=== PATIENT | female | born 1980 | race African-American/Black ===

== ENCOUNTER 2021-09-26 13:48 | Outpatient (CLI) | payer OTHER ==
[2021-09-26 20:10] LABS: ALBUMIN 4.2 g/dL (3.2-5.5); ALBUMIN/GLOBULIN RATIO 1.5 (1.0-2.2); ALKALINE PHOSPHATASE 59 IU/L (42-121); ALT ALANINE AMINOTRANSFERASE 27 IU/L (10-60); AST ASPARTATE AMINOTRANSFERASE 27 IU/L (10-42); BILIRUBIN,TOTAL 0.7 mg/dL (0.2-1.0); BUN - BLOOD UREA NITROGEN 11 mg/dL (6-20); CALCIUM 9.4 mg/dL (8.5-10.3); CARBON DIOXIDE - CO2 30 mmol/L (21-32); CHLORIDE 102 mmol/L (101-111); CHOL/HDL RATIO 3.5 (<4.4); CHOLESTEROL 170 mg/dL; CREATININE 0.9 mg/dL (0.4-1.0); GFR - MDRD 69 (>89); GLUCOSE 92 mg/dL (70-100); HDL CHOLESTEROL 48 mg/dL; LDL CHOLESTEROL,CALCULATED 101 mg/dL; LDL/HDL RATIO 2.1 (<4.4); POTASSIUM 4.6 mmol/L (3.5-5.0); SODIUM 138 mmol/L (135-145); TRIGLYCERIDES 105 mg/dL; URIC ACID 6.9 mg/dL (2.6-7.2); VLDL CHOLESTEROL 21 mg/dL
[2021-09-26 20:21] LABS: THYROID STIMULATING HORMONE 1.48 uIU/mL (0.34-5.60)
[2021-09-28 06:09] LABS: HCV AB <0.1 s/co ratio (0.0-0.9)
[2021-09-29 18:08] LABS: FREE TESTOSTERONE(DIRECT) 11.2 pg/mL (0.0-4.2)
== END 2021-09-26 13:49 | disposition home or self-care (01) ==
LOC: LAB.S 13:48
PROVIDERS: ATTEND Nurse Practitioner Family
DX: M10.9 Gout, unspecified (principal); Z11.59 Encounter for screening for other viral diseases; Z13.1 Encounter for screening for diabetes mellitus; Z13.220 Encounter for screening for lipoid disorders; N62 Hypertrophy of breast
CPT/HCPCS: 36415; 80053; 80061; 83721; 84402; 84403; 84443; 84550; 86803

== ENCOUNTER 2022-08-09 14:18 | Outpatient (CLI) | payer MEDICAID, OTHER ==
--- NOTE | 2022-08-09 14:59 | XRAY Report ---
PROCEDURE: Chest 2 View X-Ray INDICATIONS: CHEST PAIN/AXILLARY LYMPHADENOPATHY TECHNIQUE: 2 views of the chest were acquired. COMPARISON: None. FINDINGS: Surgical changes and devices: None. Lungs and pleura: No pleural effusions or pneumothorax. Lungs are clear. Mediastinum: Mediastinal contours appear normal. Heart size is normal. Bones and chest wall: No suspicious bony lesions. Overlying soft tissues appear unremarkable. IMPRESSION: No acute cardiopulmonary process. Reviewed by: Edison Dickey MD on 08/09/2022 2:58 PM PDT Approved by: Edison Dickey MD on 08/09/2022 2:58 PM PDT Station ID: [id number]
== END 2022-08-09 23:59 | disposition home or self-care (01) ==
LOC: EDSEX → DI.S 14:18
PROVIDERS: ATTEND Physician Assistant
DX: R07.89 Other chest pain (principal); R59.0 Localized enlarged lymph nodes

== ENCOUNTER 2022-09-11 12:45 | Outpatient (CLI) | payer MEDICAID ==
--- NOTE | 2022-09-11 20:00 | CT Report ---
PROCEDURE: CHEST WO INDICATIONS: AXILLARY LYMPHADENOPATHY, CHEST PAIN TECHNIQUE: Noncontrast 1mm axial images were acquired from the pulmonary apices to the posterior costophrenic an gles. Axial 5 mm soft tissue kernel reconstructions were performed as well as 8 mm axial MIP and cor onal and sagittal 5 mm reformations. For radiation dose reduction, the following was used: automate d exposure control, adjustment of mA and/or kV according to patient size. COMPARISON: CXR 08/09/2022. FINDINGS: Image quality: Excellent. Lungs and pleura: No consolidation. No pleural effusions. No pneumothorax. No suspicious pulmonary n odules which require follow up. Airways are clear. Mediastinum: Heart size is normal. No pericardial effusions. No mediastinal adenopathy by size criter ia. No large vessel abnormality. Chest wall and lower neck: Thyroid is unremarkable. No axillary or supraclavicular adenopathy by size . Small intramuscular cyst at the left pectoralis major. Bones: No aggressive osseous abnormality. Upper Abdomen: Unremarkable. IMPRESSION: No mass or significant pulmonary nodules. No enlarged lymph nodes seen. Small left pectoralis intramuscular lipoma. Reviewed by: Toro Calloway MD on 09/11/2022 7:58 PM PDT Approved by: Toro Calloway MD on 09/11/2022 7:58 PM PDT Station ID: [id number]
--- NOTE | 2022-09-23 09:03 | Ultrasound Report ---
ULTRASOUND OF LEFT AXILLA: 09/11/2022 CLINICAL: Palpable left axilla lump. No prior exams were available for comparison. Color flow ultrasound of the left axilla was performed. Christiansen scale images of the real-time examinat ion were reviewed. There is a benign oval shaped axillary node with a fatty hilum in the axilla that correlates with cli nical concern. This measures 1.5 x 1.7 x 0.8cm. IMPRESSION: BENIGN There is no sonographic evidence of malignancy. Normal size and morphology lymph node corresponds to area of clinical concern. Clinical followup is recommended. If there are new/worsening symptoms, rec ommend reimaging. This exam was interpreted at Station ID: [id number]. Electronically Signed By: Omer Purcell M.D. lc/:09/23/2022 08:52:25 Ultrasound BI-RADS: 2 Benign BI-RADS CATEGORY: (2) - 2 Unspecified - other recall n/a LATERALITY: (B)
== END 2022-09-11 12:46 | disposition home or self-care (01) ==
LOC: DI 12:45
PROVIDERS: ATTEND Physician Assistant
DX: R59.0 Localized enlarged lymph nodes (principal); R07.89 Other chest pain; Z87.891 Personal history of nicotine dependence; D17.9 Benign lipomatous neoplasm, unspecified

== ENCOUNTER 2023-08-29 15:14 | Outpatient (CLI) | payer MEDICAID ==
--- NOTE | 2023-08-29 15:58 | Sleep Patient Instructions ---
Sleep Center Visit Summary - Patient Visit Information Reason for Visit: Initial consult for evaluation of sleep disordered breathing and other sleep issues. - Patient Instructions Instructions Attached: Sleep Study Home Monitor, Sleep Study Additional Instructions: You will be completing a sleep study, either an in-lab polysomnography (PSG) or home sleep study (HST). You will follow-up in the sleep care office after the sleep study is completed to hear the results and talk about therapy, if needed. You will be called by our office staff to schedule this appointment, but you may contact us with any questions. - Clinic Information Contact: [facility] [address] [place] [id number] [email or web address] T: [phone]
--- NOTE | 2023-08-29 16:07 | SLEEP CARE CONSULTATION ---
Information from patient questionnaire entered by Trever Fields. I have reviewed and concur with the information entered by Trever Fields. This document represents the service I personally performed and the decisions made by me, Roxy Albarran ARNP. History of Present Illness Service Date and Time: 08/29/2023 1514 Reason for Visit: New patient Accompanied by: Spouse Chief Complaint: reports: Insomnia, Excessive daytime sleepiness, Fatigue, Frequent awakenings at night Date of Onset: 35YRS Usual bedtime: [id number] Time it takes to fall asleep: RIGHT AWAY -A COUPLE HRS Snores at night: Yes Observed to quit breathing while asleep: No Sleeps alone due to snoring: No Number of times waking at night: 0-4 TIMES Reasons for waking at night: reports: Pain, Other (UNKNWON). denies: Choking, Gasping for air Toss, Turn, or Twitch while sleeping: Yes Recalls having dreams: Yes Usually gets out of bed at: [id number] Feels refreshed in the morning: No Morning headache: No Sleepy or fatigued during the day: Yes Ever fallen asleep while driving: Yes Takes day naps: Yes Dreams during day naps: Yes Prior sleep studies: No Additional HPI information: I had the pleasure of seeing TYREE THOMAS today regarding the possibility of him having a sleep disorder. His current complaints are excessvie daytime sleepiness, fatigue, frequent night awakenings, insomnia, sleep walking and eating. He says he has bouts of sleepwalking and eating. He will wake up with food in his mouth. His has been encouraging him to have this checked out. He will get to a point that he is so tired that he will fall asleep during activities and his has seen him fall asleep when eating on occasion. He got a referral here after he hurt his ankle after sleep walking, stepping on a child's toy and waking up with bruises on face and swollen ankle. He goes to bed around midnight to 1 AM. 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 When he lays down to sleep, he either falls asleep quickly. There are times though when it takes a couple of hours to get to sleep. His mind will be racing with thoughts and worries. This has happened since he was a child. He gets up between 9 am-12 pm. He says he does not normally feel rested after sleeping. His says he snores sometimes, especially if on his back. He says he used to get night terrors but has not had one for about 1-1/5 years since his twins were born. He says sometimes he has "uncontrolled sleepiness" that he has had since he was a child. He just has to lay down because his legs start buckling. He says he will either be able to fall asleep or he will just lay in bed until the wave passes. He says it can be related to stress. He has told his co-workers to get him to sit down if they find him looking unfocused with his legs wobbly. 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 Patient is and lives in [place]. Have you smoked in the past 12 months: No Cigarettes per day (20/pack): 20 Years of smokin Quit date: 2021 Smoking Pack Years: 25.0 Alcohol use: Yes Alcohol amount and frequency: 3 GLASSES MOST NIGHTS Caffeine use: Yes Caffeine amount and frequency: 3 SHOTS 2-4 DAYS A WEEK Family History Family history of sleep disordered breathing: Yes Family Hx Sleep Apnea: Father: Snoring, Sleep apnea - Treated, Sleep apnea - Untreated, Sibling: Snoring, Sleep apnea - Treated, Sleep apnea - Untreated Allergies and Home Medications Known drug allergies: No Drug allergies reviewed: Yes Home medication list reviewed: Yes (no daily medications or supplements) Review of Systems Weight gain over past 5 years: 45 Weight loss over past 5 years: 15 Cardiovascular: reports: high blood pressure, leg or foot swelling Gastrointestinal: reports: heartburn, diarrhea, abdominal pain Neurological: reports: head trauma (few in past) Psychiatric: reports: claustrophobia Ear/Nose/Throat: reports: other (JAW BROKEN I N 3 PLACES). denies: tonsillectomy, wisdom teeth removed Endocrine: reports: unexplained weakness Musculoskeletal: reports: joint pain, back pain, joint swelling, muscle pain or cramping Immunologic: reports: sneezing Physical Exam Vital signs obtained and entered by: TREVER Morton MA Blood Pressure: 170/101 (LEFT ARM; very anxious about appt) Cuff size: long Heart Rate: 89 O2 Saturation: 100 Height: 5 ft 10 in Weight: 231 lb 12.8 oz Body Mass Index: 33.3 BMI Classification: Obese Neck circumference: 17 Nostrils: patent to airflow Mouth and throat: narrow oropharynx Soft palate: long Hard palate: normal Uvula: normal Uvula visualization: 25% Mallampati Class III Tongue: enlarged in size with teeth mc on lateral edges Tonsils: small Neck: normal w/o lymphadenopathy or thyromegaly Heart: regular rate and rhythm Lungs: clear bilaterally Impression and Plan 1. Suspected Obstructive Sleep Apnea-Hypopnea Syndrome, as suggested by a history of irregular snoring, frequent awakening during the night, unrefreshed sleep, cognitive impairment, and excessive daytime sleepiness. Narrow oropharynx and obesity are common predisposing factors for obstructive sleep apnea-hypopnea syndrome. I recommend proceeding to polysomnography to confirm the diagnosis and to assess severity. If the patient has significant sleep disordered breathing, a manual CPAP titration study will also be performed to find the optimal treatment pressure. I informed the patient of what the sleep studies involve and after some discussion, obtained agreement to proceed. The pathophysiology of obstructive sleep apnea-hypopnea syndrome was discussed with the patient and health risks of cardiovascular and cerebrovascular disease if not treated. Risks of drowsy driving discussed in detail and patient advised to avoid long distance driving and to green chain puller at the first sign of drowsiness. Patient agreed to plan. * Schedule polysomnography * Avoid long distance driving or driving when feeling sleepy. * Avoid alcohol, sedative and muscle relaxant around bedtime. * Attempt to lose weight. * Review instructions provided by trained office staff on how to prepare for the sleep study. * Return for follow-up after sleep study completed. Counseling Topics: Weight loss health impact Visit Type: In Office Time Spent with Patient (minutes): 32 Provider Statement: I spent 100% of the Face to Face Visit with the patient with greater than 50% spent counseling the patient and coordination of care.
[2023-08-29 16:14] VITALS: BP 170/101; O2SAT 100
== END 2023-08-29 15:15 | disposition home or self-care (01) ==
LOC: SC 15:14
PROVIDERS: ATTEND Nurse Practitioner Family
DX: G47.10 Hypersomnia, unspecified (principal); G47.00 Insomnia, unspecified; R53.83 Other fatigue; F51.3 Sleepwalking [somnambulism]; R06.83 Snoring; G47.8 Other sleep disorders; R41.89 Other symptoms and signs involving cognitive functions and awareness; E66.9 Obesity, unspecified; Z68.33 Body mass index [BMI] 33.0-33.9, adult; Z87.891 Personal history of nicotine dependence
CPT/HCPCS: 99203; 99212

== ENCOUNTER 2023-10-24 20:45 | Outpatient (CLI) | payer MEDICAID | END 2023-10-24 20:46 | disposition home or self-care (01) | LOC: SC 20:45 | PROVIDERS: ATTEND Nurse Practitioner Family | DX: G47.33 Obstructive sleep apnea (adult) (pediatric) (principal); E66.9 Obesity, unspecified; Z68.33 Body mass index [BMI] 33.0-33.9, adult | CPT/HCPCS: 95810 ==

== ENCOUNTER 2023-12-09 13:14 | Outpatient (CLI) | payer MEDICAID ==
--- NOTE | 2023-12-09 14:18 | Sleep Patient Instructions ---
Sleep Center Visit Summary - Patient Visit Information Reason for Visit: Sleep study follow-up - Patient Instructions Instructions Attached: CPAP Additional Instructions: You are being started on CPAP therapy with pressure setting at 4-15 cmH2O. You will need to call the sleep care office to set up your follow up once you have your CPAP machine to check compliance and response to therapy at that time. You may call the office with any concerns about pressure feeling too low or too much for adjustment, if needed. You should contact DME supplier for any questions or concerns about mask or equipment. Please call office to schedule a follow up appointment in the sleep care office one month after obtaining new device. - Clinic Information Contact: [facility] [address] [place] [address] [email or web address] T: [phone]
--- NOTE | 2023-12-09 14:20 | SLEEP CARE CONSULTATION ---
Information from patient questionnaire entered by Tino Rodriguez. I have reviewed and concur with the information entered by Tino Rodriguez. This document represents the service I personally performed and the decisions made by , Roxy Albarran ARNP. History of Present Illness Service Date and Time: 12/09/2023 1314 Accompanied by: Spouse (and kids) Initial [place] Sleepiness Scale score: 13 (08/29/23) Current [place] Sleepiness Scale score: 21 (12/09/23) Additional HPI information: TYREE THOMAS returns for follow up and results of the recently performed polysomnography. The sleep study done on 10/13/23 showed mild obstructive sleep apnea with an average AHI of 12.8 and trae oxygen saturation of 65%. I explained the pathophysiology behind obstructive sleep apnea. We then spent quite a bit of time discussing different treatment options. For mild obstructive sleep apnea, surgery and oral appliance are alternatives to nasal CPAP therapy but in moderate or severe cases, nasal CPAP is the most effective and reliable treatment. Because apnea is primarily in supine position, then positional management therapy could be effective. Methods discussed such as positioning with pillows, using a T-shirt with tennis balls in the back or commercial products that have a pillow format on back to prevent supine sleep. I reviewed the impact of weight changes on sleep apnea and strongly recommended losing weight. After some discussion, the patient opted to go with the nasal CPAP therapy. Nasal autoCPAP set at 4-15 cmH20 will be ordered with rationale explained. A manual titration study will be ordered if unable to find optimal pressure with office adjustments. I explained how CPAP machine works and what to expect when using the machine. Using CPAP every night in order to get used to it was emp hasized. Patient advised to put CPAP mask on before getting into bed so as not to fall asleep without CPAP. To assist acclimation to CPAP use, it could also be used for a short time during day while reading or watching TV. The patient was instructed to call the CPAP supplier to discuss any mechanical problem that may occur. If the mask given is uncomfortable or is difficult to keep on through the night even with adjustment, contact the CPAP supplier as many will replace with another mask style if notified before 30 days. If snoring or perceives is not getting enough air or too much air from the machine, notify this office. Patient counseled not drink alcohol less than 4 hours before bedtime as it can increase snoring and apnea. Patient was cautioned about risks of drowsy driving until sleepiness symptoms resolve. Sleep Study - Results Type of Sleep Study: Polysomnography Prior sleep studies: No Year and Where: 2023 [facility] Polysomnography/Home Sleep Study results: IMPRESSION: The quality of the study is good. The patient had slightly reduced sleep efficiency due to sleep onset insomnia. The sleep architecture was normal. Respiratory monitoring showed mild obstructive sleep apneahypopnea (AHI = 12.8) associated with oxyhemoglobin desaturation and moderate hypoxia (trae oxygen saturation of 65%) but not sleep fragmentation. The respiratory events occurred almost exclusively during supine sleep (supine AHI = 22.1; non-supine = 4.92). Snore was light to loud in intensity. There was no significant periodic leg movement of sleep. Cardiac rhythm was normal sinus rhythm without significant arrhythmia. No abnormal behavior (parasomnia) observed during the night. Allergies and Home Medications Known drug allergies: No Drug allergies reviewed: Yes Home medication list reviewed: Yes (no changes) Allergy and home medication list: Allergies No Known Drug Allergies Allergy Review of Systems Review of systems same as previous: Yes (no changes) Physical Exam Vital signs obtained and entered by: Roxy Diaz NP Blood Pressure: 143/89 Cuff size: long (left arm) Heart Rate: 82 O2 Saturation: 97 Height: 5 ft 10 in Weight: 224 lb 9.6 oz Body Mass Index: 32.2 BMI Classification: Obese Impression and Plan 1. Obstructive Sleep Apnea-Hypopnea Syndrome, mild, with lowest oxygen saturation of 65%. Obviously this is the cause of the patients symptoms of unrefreshed sleep, and excessive daytime sleepiness. As mentioned above, the patient will be started on nasal autoCPAP therapy with pressure set at 4-15 cmH2 O. A manual titration study will be completed if unable to find optimal treatment pressure with office adjustments. Compliance guidelines also reviewed. A copy of compliance guidelines will be given for reference at check out. Because the apnea is more severe supine, I instructed to avoid sleeping supine using pillow positioning until able to start CPAP use. 2. Hypoxemia, moderate, with a trae oxygen saturation of 65% and 5.5 minutes spent under 90%. The baseline oxygen saturation was normal with an average oxygen saturation of 96%. 3. Obesity, unspecified. Currently patients BMI is 32.2. Obesity increases the risk of apnea, CPAP pressure requirements and overall health risks especially cardiovascular and diabetes. Thus patient is advised to lose weight. * Nasal auto CPAP therapy, pressure at 4-15 cmH2O. * Attempt to lose weight. * Avoid alcohol consumption near bedtime. * Avoid supine sleep until using CPAP. * The patient is again cautioned about driving until sleepiness completely resolves. * Return one month after CPAP obtained. I will assess response to therapy and compliance at that time. Counseling Topics: Weight loss health impact Prescriptions: Auto CPAP Visit Type: In Office Time Spent with Patient (minutes): 22 Provider Statement: I spent 100% of the Face to Face Visit with the patient with greater than 50% spent counseling the patient and coordination of care.
[2023-12-09 14:25] VITALS: BP 143/89; O2SAT 97
== END 2023-12-09 13:15 | disposition home or self-care (01) ==
LOC: SC 13:14
PROVIDERS: ATTEND Nurse Practitioner Family
DX: G47.33 Obstructive sleep apnea (adult) (pediatric) (principal); R09.02 Hypoxemia; E66.9 Obesity, unspecified; Z68.32 Body mass index [BMI] 32.0-32.9, adult
CPT/HCPCS: 99212; 99213

== ENCOUNTER 2023-12-12 18:42 | Emergency (ER) | payer OTHER, MEDICAID ==
[2023-12-12 19:29] LABS: BILIRUBIN,URINE NEGATIVE (NEGATIVE); GLUCOSE, URINE (UA) NEGATIVE (NEGATIVE); KETONES,URINE (UA) NEGATIVE (NEGATIVE); LEUKOCYTE ESTERASE, URINE NEGATIVE (NEGATIVE); NITRITE,URINE NEGATIVE (NEGATIVE); OCCULT BLOOD,URINE NEGATIVE (NEGATIVE); PH,URINE 5.5 PH (5.0-7.5); PROTEIN,URINE NEGATIVE (NEGATIVE); UROBILINOGEN,URINE 0.2 (NORMAL) E.U./dL (NORMAL)
[2023-12-12 19:30] LABS: CLARITY,URINE CLEAR (CLEAR)
[2023-12-12] MEDS: KETOROLAC 15 MG/ML VIAL IM STA (19:39)
--- NOTE | 2023-12-12 19:46 | ED Physician Documentation ---
History of Present Illness - Stated complaint Stated Complaint: ABD PX - Chief complaint Chief Complaint: Abd Pain - Additonal information Additional information: 43-year-old male presents with left testicular pain. 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 He felt it retract into his abdomen, which has not happened before. When he got home, it seemed slightly abnormally positioned. However, pain has since improved. He saw his outpatient provider who thought position might be slightly abnormal, and he came to the ED after pain recurred. Currently, however, he is comfortable. No dysuria, hematuria, frequent urination, history of STDs. He is monogamous. No recent trauma otherwise. No current abdominal pain. No back or flank pain. No nausea or vomiting. No fevers or chills. No rash. No other new concerns. No recent onset use. He notes brother has history of testicular torsion. ROS Constitutional: no fever, no chills Eyes: no visual disturbance, no discharge Ears, Nose, Mouth, Throat: no rhinorrhea, no sore throat Cardiovascular: no chest pain, no palpitations Respiratory: no cough, no shortness of breath Gastrointestinal: no abdominal pain, no vomiting, no diarrhea Genitourinary: no dysuria, no hematuria Musculoskeletal: no back pain, no neck stiffness Skin: no rash, no wound Neurological: no focal weakness, no focal numbness PD PAST MEDICAL HISTORY - Past Medical History Past Medical History: No - Past Surgical History Past Surgical History: No - Present Medications Home Medications: Ambulatory Orders Medication Instructions Recorded Confirmed No Known Home Medications 08/29/23 12/12/23 - Allergies Allergies/Adverse Reactions: Allergies Allergy/AdvReac Type Severity Reaction Status Date / Time No Known Drug Allergies Allergy Verified 12/12/23 18:45 - Social History Does the pt smoke?: No Smoking Status: Never smoker Does the pt drink ETOH?: No Does the pt have substance abuse?: No - Immunizations Immunizations are current?: Yes - POLST Patient has POLST: No PD ED PE NORMAL - Free text exam Free text exam: Const: no acute distress, non toxic appearing; calm, conversant, pleasant Eyes: PERRLA, EOMI ENT: mucous membranes moist Neck: supple, non-tender Resp: no respiratory distress, clear to auscultation bilaterally Card: regular rate and rhythm, no murmurs Abd: non tender diffusely, no rigidity or rebound or guarding Back: no T or L spine tenderness, no CVA tenderness bilaterally Extrem: no deformities, no swelling bilateral lower extremities (hall monitor is RN): normal appearing scrotum and penis, with two descended testicles without abnormal lie; cremasteric reflex intact bilaterally; L testicle is mildly tender on posterior aspect; no swelling, erythema, lesions, discharge, or clear palpable lympahdenopathy Neuro: ANOx4, financial agent grossly intact, grossly intact sensation and strength all extremities Skin: no rash, warm and dry Results - Vitals Vitals: Vital Signs - 24 hr 12/12/23 12/12/23 12/12/23 18:45 19:19 21:19 Temperature 36.8 C Heart Rate 105 H 102 H 66 Respiratory 16 17 14 Rate Blood Pressure 160/90 H 155/108 H 149/68 H O2 Saturation 98 97 100 12/12/23 22:01 Temperature Heart Rate 68 Respiratory 17 Rate Blood Pressure 149/90 H O2 Saturation 100 Oxygen O2 Source Room air - Labs Labs: Laboratory Tests 12/12/23 18:57 Urine Color YELLOW Urine Clarity CLEAR Urine pH 5.5 Ur Specific [place] 1.015 Urine Protein NEGATIVE Urine Glucose (UA) NEGATIVE Urine Ketones NEGATIVE Urine Occult Blood NEGATIVE Urine Nitrite NEGATIVE Urine Bilirubin NEGATIVE Urine Urobilinogen 0.2 (NORMAL) Ur Leukocyte Esterase NEGATIVE Ur Microscopic Review NOT INDICATED Urine Culture Comments NOT INDICATED PD Medical Decision Making - ED course ED course: This patients presentation is most suggestive of epididymitis, testicular torsion, with orchitis, testicular mass, UTI, STD, hernia unlikely clinically at this time. If testicular torsion was previously present, it does appear to have resolved at this time. Nonetheless, I am obtaining stat ultrasound of scrotum with Doppler, along with urinalysis. I given Toradol and will closely reassess. Patient currently comfortable, understands plan. UA: Urine with no protein, blood, nitrites, leukocyte esterase, overall reassuring. US: I agree with radiology reads of imaging on my independent review of imaging. "FINDINGS: Right: Testicle is normal in size at 5.3 x 2.5 x 3 cm, and homogenous in echotexture. Epididymis is normal in overall size and morphology. No hydrocele. No varicoceles. Overlying scrotal skin is normal in thickness. Left: Testicle is normal in size at 5.2 x 2.3 x 3.2 cm, and homogeneous in echotexture. Epididymisis normal in overall size and morphology. No hydrocele. No varicoceles. Overlying scrotal skin is normal in thickness. Doppler: Color and pulse Doppler demonstrate normal and symmetric arterial flow in both testicles. IMPRESSION: No evidence of testicular torsion or infection. Reviewed by: Yann Drew MD on 12/12/2023 9:27 PM PDT" Patient asymptomatic here with very reassuring repeat exam. This is not consistent with testicular torsion. Sterile epididymitis is possible. STD causing epididymitis very unlikely given preceding trauma immediately prior to symptoms. Patient appears stable for follow-up, and I recommended discussing urology referral with primary care outpatient, as his description raises potential for underlying anatomic abnormality that needs more follow-up. We also discussed NSAID use. Results of work up today were discussed with the patient. Patient was instructed to follow up on incidental imaging findings with their primary care doctor. Repeat exams and vital signs reassuring. Blood pressure is elevated but suitable for outpatient follow up, with no evidence of hypertensive emergency here clinically. Patient questions answered and plan reviewed. Strong return precautions given. Patient discharged. Departure - Departure Disposition: Home, Self Care Clinical Impression: Testicle pain Condition: Good Comments: It was a pleasure taking care of you today. It is important to fully read and understand the below. Please ask us if you have any questions. Your current exam and ultrasound are reassuring. However, as discussed, it is still important to see a urologist. Please call your primary doctor, be reassessed in person within 3 to 5 days, and discussed a urologist referral to discuss what happened today and further testing. You may be at increased risk of torsion, and if you have new or worsening symptoms again, please immediately return as we discussed. You can take ibuprofen 600mg every 8 hours as needed for pain. Do not take more tonight though as you received an NSAID here. No tests or assessments are perfect, and your condition could changer fixer time. If your symptoms change or worsen, it is very important you immediately seek medical care. If you have any new or worsening pain, swelling, difficulty urinating, pain or bleeding when you pee, shortness of breath, fever, vomiting, confusion, numbness, weakness, or anything else that concerns you, please immediately seek medical care. If you have been prescribed any medications: please read the drug package inserts on how to properly use the medication and any potential side effects. If you had labs (blood tests) or imaging (CT scan or x-rays) done during your visit: please follow up on the results of these with your primary care doctor, as discussed. In addition, please know the results we received today may be preliminary. Our usual practice is to follow up on tests within a few days of a patient's discharge from the Emergency Department and notify you of any changes. These may lead to changes to your treatment plan. However, the best way to obtain and interpret these test results is through your Primary Care Provider. If you need to update your contact information, please stop by the front end architect and alert the Registration personnel before you leave the Emergency Department. Thank you for the opportunity to participate in your healthcare. We are always here and happy to see you in the future. --- YOUR ULTRASOUND: "FINDINGS: Right: Testicle is normal in size at 5.3 x 2.5 x 3 cm, and homogenous in echotexture. Epididymis is normal in overall size and morphology. No hydrocele. No varicoceles. Overlying scrotal skin is normal in thickness. Left: Testicle is normal in size at 5.2 x 2.3 x 3.2 cm, and homogeneous in echotexture. Epididymisis normal in overall size and morphology. No hydrocele. No varicoceles. Overlying scrotal skin is normal in thickness. Doppler: Color and pulse Doppler demonstrate normal and symmetric arterial flow in both testicles. IMPRESSION: No evidence of testicular torsion or infection. Reviewed by: Yann Drew MD on 12/12/2023 9:27 PM PDT" Forms: PCP List Discharge Date/Time: 12/12/23 22:01
--- NOTE | 2023-12-12 21:29 | Ultrasound Report ---
PROCEDURE: Testicle w/Doppler INDICATIONS: left testicle pain, r/o torsion TECHNIQUE: Real-time scanning was performed of the scrotum and testicles, with image documentation. Color and p ulse Doppler interrogation was performed of both testicles. COMPARISON: None. FINDINGS: Right: Testicle is normal in size at 5.3 x 2.5 x 3 cm, and homogenous in echotexture. Epididymis is normal in overall size and morphology. No hydrocele. No varicoceles. Overlying scrotal skin is nor mal in thickness. Left: Testicle is normal in size at 5.2 x 2.3 x 3.2 cm, and homogeneous in echotexture. Epididymis is normal in overall size and morphology. No hydrocele. No varicoceles. Overlying scrotal skin is n ormal in thickness. Doppler: Color and pulse Doppler demonstrate normal and symmetric arterial flow in both testicles. IMPRESSION: No evidence of testicular torsion or infection. Reviewed by: Yann Drew MD on 12/12/2023 9:27 PM PDT Approved by: Yann Drew MD on 12/12/2023 9:27 PM PDT Station ID: [id number]
[2023-12-12 21:41] VITALS: O2SAT 100
[2023-12-12 22:02] VITALS: BP 149/90
== END 2023-12-12 22:01 | disposition home or self-care (01) ==
LOC: ED 18:42
DX: N50.812 Left testicular pain (principal)
CPT/HCPCS: 81001; 81003; 87086; 93975; 96372; 99283; 99284

== ENCOUNTER 2023-12-19 21:40 | Outpatient (CLI) | payer OTHER, MEDICAID ==
--- NOTE | 2023-12-21 12:44 | Ultrasound Report ---
PROCEDURE: Pelvic Limited INDICATIONS: L INGUINAL HERNIA TECHNIQUE: Real-time transabdominal scanning was performed of the pelvic organs, with image documentation. COMPARISON: None. FINDINGS: There is no visualized left inguinal hernia identified on current exam. There is appearance of left t esticle ascending into the inguinal canal with Valsalva. IMPRESSION: No visualized left inguinal hernia. Appearance of retraction of the left testicle with Valsalva into the inguinal canal. Reviewed by: Essence Morris MD on 12/21/2023 12:43 PM PDT Approved by: Essence Morris MD on 12/21/2023 12:43 PM PDT Station ID: [id number]
== END 2023-12-19 21:41 | disposition home or self-care (01) ==
LOC: DI 21:40
PROVIDERS: ATTEND Physician Assistant Medical
DX: N50.812 Left testicular pain (principal)